=== PATIENT | female | born 1935 | race American Indian/Alaskan Native ===

== ENCOUNTER 2018-12-31 15:32 | Emergency (ER) | payer MEDICARE ==
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
--- NOTE | 2018-12-31 16:55 | XRay Report ---
RIGHT KNEE 3 VIEWS INDICATION: lateral pain. COMPARISON: No relevant prior imaging study available. FINDINGS: No acute fracture or dislocation is seen. There is mild tricompartmental joint space narrowing. No si gnificant effusion. IMPRESSION: 1. No acute findings. Signer Name: Michael Diaz MD Signed: 12/31/2018 4:50 PM Workstation Name: [id number]
[2018-12-31 18:13] VITALS: BP 148/48
[2018-12-31 21:23] LABS: Bilirubin,Urine NEG (Negative); Blood,Urine NEG (Negative); Color,Urine Straw (Yellow); Protein,Urine <15 mg/dL mg/dL (Negative); RBC,Urine < 1.0 /HPF (0.0-6.0); Urobilinogen,Urine < 2.0 mg/dL (<2.0)
--- NOTE | 2018-12-31 21:53 | Emergency Department Report ---
ED General Adult HPI - General Chief complaint: Dyspnea/Respdistress Stated complaint: SOB/DIZZY/RT LEG PAIN Time Seen by Provider: 12/31/18 15:57 Source: patient, family Mode of arrival: Wheelchair Limitations: No Limitations - History of Present Illness Initial comments: 83 year Old -[place]ian female presents to the emergency room complaining of right leg pain. Patient reports that over the course was sharp to her right leg approximately 3:30 to 4 PM while at [facility]. Patient reports that she then has shortness of breath and dizziness after the incident. Daughter reports that she's been weak since the event. Patient reports that she has a multiple history of congestive heart failure diabetes hypertenssion. -: This afternoon Time: 15:30 Location: lower extremity (right) Quality: aching Consistency: constant Improves with: none Worsens with: movement - Related Data Previous Rx's Medication Instructions Recorded Last Taken Type Acetaminophen [Acetaminophen 8 650 mg PO TID PRN #21 tablet.er 12/31/18 Unknown Rx Hour] Allergies Allergy/AdvReac Type Severity Reaction Status Date / Time No Known Allergies Allergy Unverified 12/31/18 15:51 ED Review of Systems ROS: Stated complaint: SOB/DIZZY/RT LEG PAIN Other details as noted in HPI Comment: All other systems reviewed and negative ED Past Medical Hx - Past Medical History Previous Medical History?: Yes Hx Hypertension: Yes Hx Congestive Heart Failure: Yes Hx Diabetes: Yes - Surgical History Past Surgical History?: No - Social History Smoking Status: Never Smoker Substance Use Type: None - Medications Home Medications: Home Medications Medication Instructions Recorded Confirmed Last Taken Type Acetaminophen [Acetaminophen 8 650 mg PO TID PRN #21 tablet.er 12/31/18 Unknown Rx Hour] ED Physical Exam - General Limitations: No Limitations General appearance: alert, in no apparent distress - Head Head exam: Present: atraumatic, normocephalic - Eye Eye exam: Present: normal appearance - ENT ENT exam: Present: mucous membranes moist - Neck Neck exam: Present: normal inspection, full ROM - Respiratory Respiratory exam: Present: normal lung sounds bilaterally. Absent: respiratory distress - Cardiovascular Cardiovascular Exam: Present: regular rate, normal rhythm. Absent: systolic murmur, diastolic murmur, rubs, gallop - Expanded Lower Extremity Exam Right Hip exam: Present: full ROM Upper Leg exam: Present: normal inspection, full ROM. Absent: tenderness Knee exam: Present: full ROM. Absent: swelling, abrasion (lateral knee no open wound) Lower Leg exam: Present: normal inspection, full ROM. Absent: tenderness, swelling Ankle exam: Present: normal inspection, full ROM, tenderness Foot/Toe exam: Present: normal inspection Neuro vascular tendon exam: Present: no vascular compromise Gait: Positive: observed and normal - Back Exam Back exam: Present: normal inspection, full ROM - Neurological Exam Neurological exam: Present: alert, oriented X3 - Psychiatric Psychiatric exam: Present: normal affect, normal mood - Skin Skin exam: Present: warm, dry, intact, normal color. Absent: rash ED Course Vital Signs 12/31/18 12/31/18 15:54 18:12 Temperature 97.9 F 97.6 F Pulse Rate 57 L 57 L Respiratory 18 16 Rate Blood Pressure 161/69 Blood Pressure 148/48 [Right] O2 Sat by Pulse 98 100 Oximetry ED Medical Decision Making - Radiology Data Radiology results: report reviewed Patient: NISHANT MUNOZ MR#: [id number] : 1935 Acct:[id number] Age/Sex: 83 / F ADM Date: 12/31/18 Loc: ED Attending Dr: Ordering Physician: JANES NAILS Date of Service: 12/31/18 Procedure(s): XR knee 3V RT Accession Number(s): [id number] cc: JANES NAILS Fluoro Time In Minutes: RIGHT KNEE 3 VIEWS INDICATION: lateral pain. COMPARISON: No relevant prior imaging study available. FINDINGS: No acute fracture or dislocation is seen. There is mild tricompartmental joint space narrowing. No significant effusion. IMPRESSION: 1. No acute findings. Signer Name: Michael Diaz MD Signed: 12/31/2018 4:50 PM Workstation Name: [id number] Transcribed By: SW Dictated By: Michael Diaz MD Electronically Authenticated By: Michael Diaz MD Signed Date/Time: 12/31/181649 DD/ 48 TD/TT: - Medical Decision Making 83 year Old -Armenian female presents to the emergency room complaining of right leg pain. Patient reports that over the course was sharp to her right leg approximately 3:30 to 4 PM while at [facility]. Patient reports that she then has shortness of breath and dizziness after the incident. Daughter reports that she's been weak since the event. Patient reports that she has a multiple history of congestive heart failure diabetes hypertenssion. X-ray shows no acute abnormalities. Examination shows full range of motion no swelling no tenderness. Urinalysis ordered and completed shows no acute urinary infection. She is stable to follow up with her primary care provider. Critical care attestation.: If time is entered above; I have spent that time in minutes in the direct care of this critically ill patient, excluding procedure time. ED Disposition Clinical Impression: Contusion of right knee Disposition: DC-01 TO HOME OR SELFCARE Is pt being admited?: No Does the pt Need Aspirin: No Condition: Stable Instructions: Knee Pain (ED) Prescriptions: Acetaminophen [Acetaminophen 8 Hour] 650 mg PO TID PRN #21 tablet.er PRN Reason: Pain , Severe (7-10) Referrals: [facility] [Other] - 3-5 Days Forms: Accompanied Note
[2018-12-31] MEDS ORDERED: TYLENOL PO ONE (21:56)
== END 2018-12-31 22:05 | disposition home or self-care (01) ==
LOC: ED 15:32
DX: S80.01XA Contusion of right knee, initial encounter (principal); I11.0 Hypertensive heart disease with heart failure; I50.9 Heart failure, unspecified; E11.9 Type 2 diabetes mellitus without complications; X58.XXXA Exposure to other specified factors, initial encounter; Y93.89 Activity, other specified; Y92.89 Other specified places as the place of occurrence of the external cause; Y99.8 Other external cause status
CPT/HCPCS: 81001

== ENCOUNTER 2020-07-08 13:42 | Outpatient (CLI) | payer MEDICARE ==
--- NOTE | 2020-07-08 14:39 | Mammography Report ---
DIGITAL SCREENING MAMMOGRAM WITH CAD, 07/08/2020 CLINICAL INFORMATION / INDICATION: Routine screening mammography. SCREENING MAMMO TECHNIQUE: Digital bilateral 2D mammography was obtained in the craniocaudal and mediolateral obliqu e projections. This examination was interpreted with the benefit of Computer-Aided Detection analysis . COMPARISON: 05/11/15 through 04/02/2019. FINDINGS: Breast Density: There are scattered areas of fibroglandular density. No dominant mass, suspicious calcifications, or architectural distortion in either breast. There are mild benign breast arterial calcifications bilaterally. No new abnormality is seen. IMPRESSION: No mammographic evidence of malignancy. Follow up recommendation: Routine yearly BI-RADS Category 2: Benign. A "normal" or negative report should not discourage follow up or biopsy of a clinically significant f inding. A written summary of these findings will be mailed to the patient. The patient will be entered into a mammography reporting system which will generate a reminder letter for the patient's next appointmen t at the appropriate interval. The [employer] recommends yearly mammograms starting at age 40 and continuing as l dwight as a woman is in good health. Breast MRI is recommended for women with an approximate 20-25% or greater lifetime risk of breast cancer, including women with a strong family history of breast or ova bert cancer or who have been treated for Hodgkin's disease. Signer Name: Óscar Alberto MD Signed: 07/08/2020 2:34 PM Workstation Name: [id number]
== END 2020-07-08 13:43 | disposition home or self-care (01) ==
LOC: SPVWC 13:42
PROVIDERS: ATTEND Surgery
DX: Z12.31 Encounter for screening mammogram for malignant neoplasm of breast (principal); N64.89 Other specified disorders of breast
CPT/HCPCS: 77067